=== PATIENT | male | born 1950 | race Asian ===

== ENCOUNTER 2017-01-10 11:44 | Day surgery (SDC) | payer MEDICARE, BC ==
[~2017-01-10] VITALS: Ht 167.6 cm; Wt 65.6 kg
[~2017-01-10 11:44] MED LIST: ASPI-535 PO; DOXA1TAB PO; HYDR12.58 PO
[2017-01-10 12:50] VITALS: Ht 167.6 cm; Wt 65.6 kg
[2017-01-10 13:16] VITALS: BP 141/69; PULSE 96; RESP 20
[2017-01-10] MEDS ORDERED: LIDOCAINE 2% (SDV) 5 ML INJ ONE (13:19)
[2017-01-10] MEDS ORDERED: MIDAZOLAM 1 MG/ML 2 ML INJ ONE (13:19)
[2017-01-10] MEDS ORDERED: PROPOFOL 20 ML ONE (13:19)
[2017-01-10] MEDS ORDERED: ATORVASTATIN PO (13:24)
[2017-01-10 14:12] VITALS: BP 116/74; PULSE 116; RESP 18
--- NOTE | 2017-01-10 14:52 | GILP ---
DATE OF PROCEDURE: 01/10/2017 NAME OF PROCEDURE: Colonoscopy. SURGEON: Mg Gomez MD PREOPERATIVE DIAGNOSES: 1. Change in the bowel habit. 2. History of colon polyps. POSTOPERATIVE DIAGNOSES 1. Colonoscopy all the way to the cecum. 2. Poor prep making the exam somewhat suboptimal in the cecum and right colon. 3. Internal hemorrhoids. 4. No colon neoplasm was identified. INDICATION FOR THE PROCEDURE: Mr. Zane Rock is a 66-year-old male patient who noticed a change in the bowel habit. He had history of colon polyps. The patient was scheduled for colonoscopy for fur ther evaluation. The procedure and possible complications are well explained to the patient, he understood and consen riky to the procedure. DESCRIPTION OF PROCEDURE: Under the influence of anesthesia, the colonoscope was carefully introduc ed in the rectum and under direct vision, it was advanced all the way to the cecum. FINDINGS: The patient had somewhat poor prep with some stool in the cecum and right colon making th e examination of that area somewhat suboptimal. Other areas of the colon were normal. There was no gross neoplasm identified. He was noted to have internal hemorrhoids. He tolerated the procedure very well and there was no complication from the procedure. At the end o f the procedure, he was awake with stable vital signs and he was discharged home in the care of his family. IMPRESSION: 1. Colonoscopy all the way to the cecum. 2. Poor prep making the examination of the cecum and right colon was somewhat suboptimal. 3. Internal hemorrhoids. 4. No gross neoplasm was identified. PLAN: 1. High-fiber diet. 2. Because of the suboptimal nature of the examination, would recommend repeat colonoscopy with bet ter preparation in 3 to 5 years. Dictated By: MG SNELL/PARI Conf#: [id number] DID#: [id number] CC: MG GOMEZ MD;*[facility]*
--- NOTE | 2017-01-10 22:05 | CONS ---
DATE OF ADMISSION: 01/10/2017 DATE OF CONSULTATION: TYPE OF CONSULTATION: Dr. Darling, I thank you very much for this kind referral. HISTORY OF PRESENT ILLNESS: The patient is a 66-year-old male patient who has been referred to me f or further evaluation of change in bowel habits. Patient has history of colon polyps. The patient had last colonoscopy more than 3 years ago and he had colon polyps removed. He denies any history o f rectal bleeding. His appetite has been good and he is not losing any weight. He does not have an y upper abdominal pain, nausea or vomiting. There is no history of peptic ulcer disease. He is not taking any nonsteroidal anti-inflammatory agents. He is known to have had gallstones. He does not have any fever, chills or jaundice. There is no history of liver disease. He is hypertensive. He is not a diabetic. He does not have any heart disease or lung problem. There is no history of kid fern disease. He has hyperlipidemia. He also has enlarged prostate. SOCIAL HISTORY: He is a nonsmoker. He does not abuse alcohol. FAMILY HISTORY: Negative for gastrointestinal tract neoplasm. ALLERGIES: THERE IS NO HISTORY OF SIGNIFICANT DRUG ALLERGY. MEDICATIONS 1. Hydrochlorothiazide 12.5 mg p.o. daily. 2. Atorvastatin 20 mg p.o. daily. 3. Doxazosin 4 mg p.o. VITAL SIGNS: He is 5 feet 6 inches tall, and he weighs 143 pounds. BMI is 23. Blood pressure 136/ 84. HEART: Normal 1st and 2nd heart sounds. LUNGS: Clear. ABDOMEN: Soft without any distention. Liver and spleen are not palpable. There are no masses. Th ere is no focal tenderness. Normal bowel sounds are heard. CENTRAL NERVOUS SYSTEM: Does not reveal any focal neurological deficit. IMPRESSION 1. Change in bowel habits. 2. History of colon polyps. 3. History of gallstones. 4. Patient seemed to be asymptomatic from gallstones. 5. Hypertension. 6. Hyperlipidemia. 7. Enlarged prostate. PLAN: Colonoscopy for further evaluation. The procedure and possible complications are well explained to the patient. He understands and cons ents to the procedure. I thank you once again. With warmest personal regards, Dictated By: JAKOB SNELL/PARI Conf#: [id number] DID#: [id number] CC: MICHELL DARLING MD;*[facility]*
== END 2017-01-10 15:55 | disposition home or self-care (01) ==
LOC: GIL 11:44
PROVIDERS: ATTEND Internal Medicine Gastroenterology
DX: R19.4 Change in bowel habit (principal); K64.8 Other hemorrhoids; I10 Essential (primary) hypertension; E78.5 Hyperlipidemia, unspecified
CPT/HCPCS: 45378; J2250